=== PATIENT | female | born 1950 | race Caucasian/White ===

== ENCOUNTER 2017-01-19 12:25 | Day surgery (SDC) | payer MEDICARE ==
[~2017-01-19 12:25] MED LIST: DIPRIVAN 200 MG/20 ML IV ONE; Kenalog-40 IM ONE; Lactated Ringers 1,000 ML IV SCH; Sensorcaine 0.25% 10 ML IJ ONE
[2017-01-19] MEDS ORDERED: Lactated Ringers 1,000 ML IV ONE (13:13)
[2017-01-19 14:33] VITALS: BP 151/90; PULSE 109; O2SAT 96
--- NOTE | 2017-01-19 17:19 | XRAY ---
16 seconds fluoroscopy time in surgery for left MBB L2-5.
--- NOTE | 2017-01-19 17:27 | XRAY ---
Indication: Left L2-L5 medial branch block. Intraoperative fluoroscopy was provided for 16 seconds. Single digital spot image submitted for interpretation demonstrates 4 posterior spinal needles with the tips projecting over the expected course of the right L2-L5 nerve roots. Correlate with intraoperative findings/report. Incidental previous lumbosacral junction posterior fusion surgery as evidenced by bilateral spinal hardware and intervertebral spacer.
== END 2017-01-19 16:11 | disposition home or self-care (01) ==
LOC: EDBD 12:25 → SDC-PAIN 12:25
PROVIDERS: ATTEND Pain Medicine Interventional Pain Medicine
DX: M96.1 Postlaminectomy syndrome, not elsewhere classified (principal); M25.562 Pain in left knee; M75.42 Impingement syndrome of left shoulder; Z79.891 Long term (current) use of opiate analgesic
CPT/HCPCS: 64493; 64494; 64495; 72020; 77003; J2704; J3301

== ENCOUNTER 2017-03-23 08:17 | Day surgery (SDC) | payer MEDICARE ==
[~2017-03-23 08:17] MED LIST changes: +Lactated Ringers 1,000 ML IV ONE; -Lactated Ringers 1,000 ML IV SCH
--- NOTE | 2017-03-23 11:18 | XRAY ---
Indication: Left L2-L5 MBB. Intraoperative fluoroscopy was provided for 15 seconds. Single digital spot image submitted for interpretation demonstrates posterior spinal needles with the tips projecting over the expected course of the left L2-L5 nerve roots. Correlate with intraoperative findings/report. Previous lumbosacral junction posterior fusion surgery with intact spinal hardware and intervertebral spacer.
--- NOTE | 2017-03-23 15:06 | XRAY ---
15 seconds fluoroscopy time in surgery for left L2-5 MBB.
== END 2017-03-23 10:45 | disposition home or self-care (01) ==
LOC: SDC-PAIN 08:17
PROVIDERS: ATTEND Pain Medicine Interventional Pain Medicine
DX: M51.36 Other intervertebral disc degeneration, lumbar region (principal); M96.1 Postlaminectomy syndrome, not elsewhere classified; M25.562 Pain in left knee; Z79.891 Long term (current) use of opiate analgesic
CPT/HCPCS: 64493; 64494; 64495; 72020; 77003; J2704; J3301